=== PATIENT | female | born 1945 | race Two or more races ===

== ENCOUNTER → 2022-10-13 | Outpatient (CLI) | payer OTHER, MEDICAID | END | disposition home or self-care (01) | LOC: XYW 08:57 | PROVIDERS: ATTEND Student in an Organized Health Care Education/Training Program | DX: I77.9 Disorder of arteries and arterioles, unspecified (principal) | CPT/HCPCS: 93925 ==

== ENCOUNTER 2024-11-25 18:23 | Emergency (ER) | payer OTHER, MEDICAID ==
[~2024-11-25] VITALS: Ht 152.4 cm; Wt 56.8 kg
--- NOTE | 2024-11-25 19:01 | ED.PDOC ---
HPI Comments Vitals: temperature of 98.3F, respiratory rate of 16, SpO2 of 97%RA, pulse rate of 78, blood pressure of 181/67 Past medical history: Alzheimer's dementia Past surgical history: hysterectomy HPI: Poor Historian. 79-year-old female brought in by her daughter for evaluation of elevated blood pressure. Patient is not on any blood pressure medications. Patient has no history of hypertension. Given the patient's dementia, daughter states she is unable to communicate to her what her symptoms are. Her blood pressure was as high as 200s systolically at home. REVIEW OF SYSTEMS: Limited given the patient's history of dementia. She is currently at her baseline. History obtained from the daughter bedside. CONSTITUTIONAL: Denies acute: fever, diaphoresis, chills, HEAD: Denies acute: headache, photophobia Eyes: Denies acute: Double vision, vision loss, eye pain, eye discharge. EARS: Denies acute: tinnitus, hearing loss, ear discharge, ear pain, THROAT: Denies acute: sore throat, swelling, difficulty swallowing , pain with swallowing, change in voice. NECK: Denies acute: neck pain, neck swelling, stiff neck. HEART: Denies acute : chest pain, palpitations, LUNGS: Denies acute: SOB, wheezing, cough, hemoptysis ABDOMEN: Denies acute: abdominal pain, Nausea, Vomiting, diarrhea, melena , hematemesis, hematochezia SKIN: Denies acute: rash, redness, lesions, itchiness. EXTREMITIES: Denies acute: calf pain, numbness, tingling, weakness, denies pain in extremity. Denies acute: Low back pain. Neuro: Denies acute: focal neurological deficit, motor or sensory focal neurological deficit, tremors, seizure like activity, confusion, dizziness, change in mental status, loss of bowel or bladder function, cauda equina like symptoms. : Denies acute: dysuria, hematuria, flank pain, increase in urinary frequency. PSYCH: Denies acute: hallucination, suicidal ideation, homicidal ideation. FEMALE: Denies acute: abnormal vaginal bleeding, foul odor, unusual discharge. PHYSICAL EXAM: General: ----mild----acute distress, awake and alert. Head: normocephalic, atraumatic. Neck: supple, trachea is midline, no swelling. Eyes:, no erythema, no purulent discharge, no proptosis, no icterus. Heart: regular rate, regular rhythm, no significant murmur appreciated. Lungs: no apparent respiratory distress, No wheezing, no rhonchi, no crackles. No stridors Clear to auscultation bilaterally. Abdomen: non tender to palpation, non distended, soft, no guarding, no rebound, + bowel sounds. Neuro: Awake, Alert, at baseline dementia per daughter at bedside. Skin: no petechia, no purpura, no cyanosis, non-pale, not jaundice. Lower extremities: --trace bilateral - Pitting edema no deformity, no focal swelling, no calf TTP. Makes eye contact. moves all four extremities. Face: no apparent facial droop. ED COURSE: Chief Complaint: High Blood Pressure Time Seen by MD: 18:50 Reviewed Notes: Nurses Notes, Allergies Allergies: Coded Allergies: Penicillins (Verified Allergy, Unknown, 11/25/24) Information Source: Patient, Relative (Child) Mode of Arrival: Wheelchair Was a procedure done? Was a procedure done?: No CP Differential Dx Differential Diagnosis: N/A Differential Diagnosis: Other (DDX include renal disease, thyroid disease, electrolyte abnormality, increased salt intake, medications non-compliance, undiagnosed HTN, Hypertensive crisis, hypertensive urgency., drug toxicity.) X-Ray, Labs, Meds, VS Vital Signs Date Time Temp Pulse Resp B/P (MAP) Pulse Ox O2 Delivery O2 Flow Rate FiO2 11/25/24 22:10 143/77 11/25/24 22:00 Room Air* 0 21 11/25/24 22:00 97.9 71 11 143/77 (99) 96 97.9 11/25/24 18:56 98.3 78 16 181/67 (105) 97 98.3 Lab Test 11/25/24 22:17 11/25/24 20:46 11/25/24 19:06 Range/Units Urine Color Colorless Yellow Urine Clarity Clear Clear Urine pH 6.0 5.0-9.0 Urine Specific [place] 1.007 1.001-1.035 Urine Protein Negative Negative Urine Ketones Negative Negative Urine Blood Negative Negative /uL Urine Nitrite Negative Negative Urine Bilirubin Negative Negative Urine Urobilinogen Normal Negative mg/dL Urine Leukocyte Esterase Negative Negative /uL Urine RBC 1 0 - 4 /hpf Urine Microscopic WBC 0-5 /HPF Urine Squamous Epithelial Cells None seen <5 /hpf Urine Bacteria None seen None Seen /hpf Urine Glucose Normal Normal mg/dL Troponin I High Sensitivity 6 6 </=34 ng/L White Blood Count 6.4 4.4-10.8 10^3/uL Red Blood Count 4.63 4.0-5.20 10^6/uL Hemoglobin 14.6 12.2-16.2 g/dL Hematocrit 42.8 36.0-46.0 % Mean Corpuscular Volume 92.5 80.0-100.0 fL Mean Corpuscular Hemoglobin 31.4 28.0-32.0 pg Mean Corpuscular Hemoglobin Concent 34.0 32.0-36.0 g/dL Red Cell Distribution Width 12.6 11.8-14.3 % Platelet Count 211 140-450 10^3/uL Mean Platelet Volume 8.1 6.9-10.8 fL Neutrophils (%) (Auto) 55.1 37.0-80.0 % Lymphocytes (%) (Auto) 32.0 10.0-50.0 % Monocytes (%) (Auto) 6.9 0.0-12.0 % Eosinophils (%) (Auto) 5.2 0.0-7.0 % Basophils (%) (Auto) 0.8 0.0-2.0 % Neutrophils # (Auto) 3.5 1.6-8.6 10 ^3/uL Lymphocytes # (Auto) 2.0 0.4-5.4 10 ^3/uL Monocytes # (Auto) 0.4 0-1.3 10 ^3/uL Eosinophils # (Auto) 0.3 0-0.8 10 ^3/uL Basophils # (Auto) 0.1 0-0.2 10 ^3/uL Nucleated Red Blood Cells 0.0 % Sodium Level 141 136-145 mmol/L Potassium Level 4.0 3.5-5.1 mmol/L Chloride Level 108 H 98-107 mmol/L Carbon Dioxide Level 23 20-31 mmol/L Anion Gap 10 5-15 Blood Urea Nitrogen 20 9-23 mg/dL Creatinine 0.58 0.550-1.02 mg/dL Glomerular Filtration Rate Calc 93 >90 mL/min BUN/Creatinine Ratio 34.5 H 10.0-20.0 Serum Glucose 93 74-106 mg/dL Lactic Acid Level 1.0 0.4-2.0 mmol/L Calcium Level 10.1 8.7-10.4 mg/dL Total Bilirubin 0.4 0.2-1.0 mg/dL Aspartate Amino Transferase (AST) 19 13-40 U/L Alanine Aminotransferase (ALT) 16 7-40 U/L Alkaline Phosphatase 86 46-116 U/L B-Type Natriuretic Peptide 18.43 0-100 pg/mL Total Protein 7.1 5.7-8.2 g/dL Albumin 4.6 3.2-4.8 g/dL [place] [id number] Ph: [phone] DIAGNOSTIC IMAGING Diagnostic Imaging Report : [id number] Signed PATIENT: CEDRIC OLSON ACCT: [id number] UNIT: [id number] : 1945 LOC: ER ROOM / BED: / AGE / SEX: 79 / F ADM STATUS: REG ER SERVICE 54 ORDERING PHYSICIAN: TATIANA COLE DO PROCEDURE(s): HWOCT - HEAD WITHOUT CONTRAST REASON: htn ORDER NUMBER(s): [id number], ACCESSION NUMBER(s): [id number] Exam: CT HEAD WITHOUT CONTRAST History: htn Technique: [address] images through the posterior fossa and the supratentorial compartment were acquired without contrast and imaged using soft tissue and bone algorithms. RADIATION DOSE: DLP 801.66 mGy.cm; CTDI vol 50.0 mGy. Comparison: None Findings: There is no evidence of an intracranial hemorrhage, acute large vessel infarct, mass effect, or midline shift. Chronic small vessel ischemic disease. There is no significant cerebral atrophy. Mild calcification of the carotid siphons. The calvarium, orbits, paranasal sinuses, sella, middle ears, and mastoids are unremarkable. The superficial soft tissues are within normal limits. Impression: 1. No acute intracranial abnormality. ATED BY: LUH HAMILTON DO DICTATED DATE/TIME: 11/25/241944 SIGNED BY: LUH HAMILTON DO SIGNED DATE/TIME: 11/25/241944 CC: [place] [id number] Ph: [phone] DIAGNOSTIC IMAGING Diagnostic Imaging Report : [id number] Signed PATIENT: CEDRIC OLSON ACCT: [id number] UNIT: [id number] : 1945 LOC: ER ROOM / BED: / AGE / SEX: 79 / F ADM STATUS: REG ER SERVICE 54 ORDERING PHYSICIAN: TATIANA COLE DO PROCEDURE(s): CXRP - CHEST PORTABLE REASON: htn ORDER NUMBER(s): [id number], ACCESSION NUMBER(s): [id number] EXAM: XY CHEST PORTABLE TECHNIQUE: Single frontal chest radiograph CLINICAL HISTORY: htn COMPARISON: None Findings/Impression: Frontal chest radiograph demonstrates no acute osseous or superficial soft tis ester abnormalities. The trachea is midline. The cardiac silhouette and mediastinum are within normal limits. No pneumothorax, pleural effusions, or consolidations. ATED BY: LUH HAMILTON DO DICTATED DATE/TIME: 11/25/241949 SIGNED BY: LUH HAMILTON DO SIGNED DATE/TIME: 11/25/241949 CC: Time of 1ST Reevaluation: 18:50 Reevaluation 1ST: Unchanged Time of 2ND Reevaluation: 22:36 (Patient's blood pressure improved without receiving any nitroglycerin.) Patient Education/Counseling: Other (patient has dementia and Alzheimers) Family Education/Counseling: Diagnosis, Treatment Comments Patient presented with the above HPI.--hypertension---workup was initiated. patient was found with the above mentioned diagnosis. the following medications were ordered: please refer to order lists of meds and tests obtained by myself Dr. Cole. Patient ED course and VS have been stabilized. Patient has been reassessed in the ED and remained in a stable condition. Pertinent incidental findings were discussed with the patient and/or family. Patient/family voices understanding and is agreeable with plan. Patient has been observed in the ED adequate length of time to insure improvement/stability. Escalation of care considered: Consideration of escalation to observation or admission Patient was DISCHARGED home in a stable condition. All the reports of any imaging studies that were ordered by myself were reviewed by myself. Departure 1 Departure Time of Disposition: 22:47 Impression: Primary Impression: Hypertensive urgency Disposition: HOME / SELF CARE / HOMELESS Condition: Stable Additional Instructions: Additional instructions: You MUST follow-up with your primary care/family doctor in 1 to 2 days. If you are unable to see your primary care/family doctor, please return to our emergency room for re-assessment and re-evaluation in 1 to 2 days. Return to the emergency room here in our facility or to the nearest ER [facility] if your symptoms change or worsen. CONSULTATIONS: you MUST Follow-up for consultation as soon as possible with: cardiology in 1-2 days. Please call for appointment. You MUST call the consultants office yourself to make an appointment. You may need to arrange that through your insurance and/or your primary/family doctor. If you are unable to see the direct sales consultant in 1 to 2 days, you must return to our emergency room (or any other ER of your choice) for re-assessment and re-evaluation. Adequate fluid hydration. Monitor blood pressure at home at least [address] scan of the head was normal. Chest x-ray was normal. Labs and urinalysis and EKG were also unremarkable. Discharged With: Self Critical Care Note Critical Care Time?: No I personally scribed for TATIANA COLE DO ([email or web address]) on 11/25/24 at 19:01. Electronically submitted by Torey Nieves ([email or web address]). I personally scribed for TATIANA COLE DO ([email or web address]) on 11/25/24 at 20:59. Electronically submitted by Torey Nieves ([email or web address]). TATIANA COLE DO Nov 25, 2024 19:01
[2024-11-25 19:24] LABS: Basophils # (auto) 0.1 10 ^3/uL (0-0.2); Basophils % (auto) 0.8 % (0.0-2.0); Eosinophils # (auto) 0.3 10 ^3/uL (0-0.8); Eosinophils % (auto) 5.2 % (0.0-7.0); Hematocrit 42.8 % (36.0-46.0); Hemoglobin 14.6 g/dL (12.2-16.2); Mean Corpuscular Hemoglobin 31.4 pg (28.0-32.0); Mean Corpuscular Volume 92.5 fL (80.0-100.0); Monocytes # (auto) 0.4 10 ^3/uL (0-1.3); Monocytes % (auto) 6.9 % (0.0-12.0); Neutrophils # (auto) 3.5 10 ^3/uL (1.6-8.6); Neutrophils % (auto) 55.1 % (37.0-80.0); Platelet Count (auto) 211 10^3/uL (140-450); Red Blood Cells 4.63 10^6/uL (4.0-5.20); Red Cell Distribution Width 12.6 % (11.8-14.3); White Blood Cell 6.4 10^3/uL (4.4-10.8)
[2024-11-25 19:38] LABS: Alanine Aminotransferase 16 U/L (7-40); Albumin 4.6 g/dL (3.2-4.8); Alkaline Phosphatase 86 U/L (46-116); Anion Gap 10 (5-15); Aspartate Aminotransferase 19 U/L (13-40); BUN/Creatinine Ratio 34.5 (10.0-20.0); Blood Urea Nitrogen 20 mg/dL (9-23); Calcium 10.1 mg/dL (8.7-10.4); Carbon Dioxide 23 mmol/L (20-31); Glucose 93 mg/dL (74-106); Sodium 141 mmol/L (136-145); Total Protein 7.1 g/dL (5.7-8.2)
[2024-11-25 19:39] LABS: Bilirubin, Total 0.4 mg/dL (0.2-1.0)
[2024-11-25 19:48] LABS: Chloride 108 mmol/L (98-107)
--- NOTE | 2024-11-25 19:48 | DVH ---
Exam: CT HEAD WITHOUT CONTRAST History: htn Technique: [address] images through the posterior fossa and the supratentorial compart ment were acquired without contrast and imaged using soft tissue and bone algorithms. RADIATION DOSE: DLP 801.66 mGy.cm; CTDI vol 50.0 mGy. Comparison: None Findings: There is no evidence of an intracranial hemorrhage, acute large vessel infarct, mass effect, or midli ne shift. Chronic small vessel ischemic disease. There is no significant cerebral atrophy. Mild calcification of the carotid siphons. The calvarium, orbits, paranasal sinuses, sella, middle ears, and mastoids are unremarkable. The superficial soft tissues are within normal limits. Impression: 1. No acute intracranial abnormality.
--- NOTE | 2024-11-25 19:52 | DVH ---
EXAM: XY CHEST PORTABLE TECHNIQUE: Single frontal chest radiograph CLINICAL HISTORY: htn COMPARISON: None Findings/Impression: Frontal chest radiograph demonstrates no acute osseous or superficial soft tissue abnormalities. The trachea is midline. The cardiac silhouette and mediastinum are within normal limits. No pneumothorax, pleural effusions, or consolidations.
[2024-11-25 22:00] VITALS: BP 143/77; PULSE 71; RESP 11; TEMP 97.9; O2SAT 96
[2024-11-25] MEDS: NITROGLYCERIN 0.4 MG SL TAB SL ONE (22:10)
[2024-11-25 22:18] LABS: Urine Bacteria None Seen /hpf (None Seen)
[2024-11-25 22:23] LABS: Urine Blood Negative /uL (Negative); Urine Clarity Clear (Clear); Urine Color Colorless (Yellow); Urine Protein, UAD Negative (Negative); Urine Specific Gravity 1.007 (1.001-1.035); Urine Squamous Epithelial Cell None Seen /hpf (<5); Urine Urobilinogen Normal (Negative)
== END 2024-11-25 23:00 | disposition home or self-care (01) ==
LOC: ER 18:23
DX: I16.0 Hypertensive urgency (principal); G30.9 Alzheimer's disease, unspecified; R51.9 Headache, unspecified; Z88.0 Allergy status to penicillin; Z90.710 Acquired absence of both cervix and uterus
CPT/HCPCS: 36415; 70450; 71045; 80053; 81001; 83605; 83880; 84484; 85025

== ENCOUNTER 2025-02-12 14:04 | Emergency (ER) | payer OTHER, MEDICAID ==
[~2025-02-12] VITALS: Ht 152.4 cm; Wt 65.0 kg
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
--- NOTE | 2025-02-12 16:12 | DVH ---
CLINICAL INDICATION: Rule out fracture TECHNIQUE: 2 radiographic views of the basic spine were obtained. Comparison: None FINDINGS/IMPRESSION: Elevation of the right diaphragm air under both diaphragms. Appears to be bowel however if pneumoperi toneum is of clinical concern recommend CT abdomen and pelvis. Multilevel mildly compressed mid lower thoracic compressed vertebral bodies that appear nondisplaced. There are no prior studies for comparison.
--- NOTE | 2025-02-12 16:15 | DVH ---
XY CHEST TWO VIEWS ROUTINE CLINICAL HISTORY: Rule out fracture COMPARISON: None TECHNIQUE: Frontal and lateral view of the chest was obtained FINDINGS: Lines and Tubes: None Lungs: No focal consolidation. Elevation of right diaphragm appears to be bowel gas below. If pneumop eritoneum is of clinical concern recommend CT abdomen and pelvis Pleura: No effusion. No pneumothorax. Cardiomediastinal contours: Unremarkable Bones: Punctate calcification adjacent to the greater tuberosity of the right humerus may represent c alcified tendinitis. IMPRESSION: 1. Mild elevation right diaphragm with atelectasis in the right base. 2. Appears to be bowel gas below both diaphragms. If pneumoperitoneum is of clinical concern recommen d CT abdomen and pelvis.
--- NOTE | 2025-02-12 17:29 | DVH ---
CT THORACIC SPINE WO CONTRAS INDICATION: RULE OUT FRACTURE EXAM DATE: 02/12/2025 04:33 PM COMPARISON: None RADIATION DOSE: CTDIvol: 26.68 mGy, DLP: 1141.09 mGy*cm PROCEDURE: Utilizing the CT scanner, contiguous axial scans were obtained through the thoracic spine. Image data were processed using Standard and Bone algorithms. Coronal and sagittal reformatted image s were then generated. All CT scans at this medical facility are performed using dose modulation techniques as appropriate t o a performed exam including the following: Automated exposure control was utilized; adjustment of th e MA and/or KV according to patient size; and use of iterative reconstruction technique. FINDINGS: Mild L1 compression due to a schmorl node. The thoracic vertebral body heights and alignmen t are otherwise maintained. The intervertebral disc spaces are preserved. The cortical margins are in tact. The spinal canal and neural foramina are patent at all levels. The paraspinal soft tissues are normal. IMPRESSION: Posterior T11, T10 rib fracture. Mild L1 compression due to a schmorl node Otherwise unremarkable CT findings of the thoracic spine.
[2025-02-12 18:10] VITALS: BP 158/78; PULSE 80; RESP 16; TEMP 98.7; O2SAT 94
== END 2025-02-12 18:13 | disposition home or self-care (01) ==
LOC: ER 14:04
DX: S22.41XA Multiple fractures of ribs, right side, initial encounter for closed fracture (principal); S23.3XXA Sprain of ligaments of thoracic spine, initial encounter; F03.90 Unspecified dementia, unspecified severity, without behavioral disturbance, psychotic disturbance, mood disturbance, and anxiety; Z88.0 Allergy status to penicillin; W18.39XA Other fall on same level, initial encounter; Y93.89 Activity, other specified; Y92.89 Other specified places as the place of occurrence of the external cause; Y99.8 Other external cause status
CPT/HCPCS: 71046; 72070; 72128